=== PATIENT | male | born 1960 | race Caucasian/White ===

== ENCOUNTER 2017-12-06 07:48 | Emergency (ER) | payer OTHER ==
[~2017-12-06] VITALS: Ht 172.7 cm; Wt 190.9 kg
[2017-12-06 07:49] VITALS: BP 177/86
[2017-12-06] MEDS ORDERED: CYCL-1 PO (08:22)
== END 2017-12-06 08:54 | disposition home or self-care (01) ==
LOC: ER 07:50
DX: S39.011A Strain of muscle, fascia and tendon of abdomen, initial encounter (principal); E66.9 Obesity, unspecified; I10 Essential (primary) hypertension; E11.9 Type 2 diabetes mellitus without complications; Z87.442 Personal history of urinary calculi; Z88.0 Allergy status to penicillin; W18.49XA Other slipping, tripping and stumbling without falling, initial encounter; Y93.01 Activity, walking, marching and hiking; Y92.89 Other specified places as the place of occurrence of the external cause; Y99.9 Unspecified external cause status
CPT/HCPCS: 99284